=== PATIENT | male | born 1990 | race Two or more races ===

== ENCOUNTER 2023-09-18 13:03 | Emergency (ER) | payer MEDICAID, OTHER ==
[2023-09-19] MEDS ORDERED: KEP500T PO (01:54)
== END 2023-09-18 14:06 | disposition left against medical advice (07) ==
LOC: ER 13:03
DX: R56.9 Unspecified convulsions (principal); Z53.21 Procedure and treatment not carried out due to patient leaving prior to being seen by health care provider

== ENCOUNTER 2023-09-18 21:28 | Emergency (ER) | payer MEDICAID ==
[~2023-09-18] VITALS: Ht 165.1 cm; Wt 60.0 kg
[2023-09-18] MEDS: LORazepam 2MG/ML-1ML VIAL IM ONE (21:43)
[2023-09-18] MEDS: LORazepam 2MG/ML-1ML VIAL ONE (21:43)
[2023-09-18 22:20] VITALS: PULSE 129; RESP 26; TEMP 98.7; O2SAT 99
[2023-09-18] MEDS: levETIRAcetam 1000 mg/100ml 100 ML IV ONE (22:39)
[2023-09-18] MEDS: SODIUM CHLORIDE 0.9% 1,000 ML IV ONE (22:39)
[2023-09-18 22:48] LABS: Basophils # (auto) 0.1 10 ^3/uL (0-0.2); Basophils % (auto) 0.9 % (0.0-2.0); Eosinophils # (auto) 0 10 ^3/uL (0-0.8); Hematocrit 43.7 % (41.0-53.0); Hemoglobin 13.5 g/dL (13.5-17.5); Lymphocytes # (auto) 0.7 10 ^3/uL (0.4-5.4); Lymphocytes % (auto) 13.9 % (10.0-50.0); Mean Corpuscular Hemoglobin 21.4 pg (28.0-32.0); Mean Corpuscular Hgb Conc. 30.8 g/dL (32.0-36.0); Mean Corpuscular Volume 69.5 fL (80.0-100.0); Monocytes # (auto) 0.2 10 ^3/uL (0-1.3); Monocytes % (auto) 3.5 % (0.0-12.0); Neutrophils # (auto) 4.4 10 ^3/uL (1.6-8.6); Neutrophils % (auto) 81.7 % (37.0-80.0); Nucleated Red Blood Cells % 0.1 %; Red Blood Cells 6.29 10^6/uL (4.5-5.90); White Blood Cell 5.4 10^3/uL (4.4-10.8)
[2023-09-18 22:49] LABS: Chloride 101 mmol/L (98-107); Potassium 3.4 mmol/L (3.5-5.1); Sodium 138 mmol/L (136-145)
[2023-09-18 22:50] LABS: Anion Gap 16 (5-15); Carbon Dioxide 21 mmol/L (20-30)
[2023-09-18 22:51] LABS: Calcium 9.3 mg/dL (8.5-10.1)
[2023-09-18 22:52] LABS: Red Cell Distribution Width 21.5 % (11.8-14.3)
[2023-09-18 22:55] LABS: Glucose 124 mg/dL (74-106)
[2023-09-18 23:08] LABS: Urine Bacteria None Seen /hpf (None Seen)
[2023-09-18 23:11] LABS: Anisocytosis Slight; Hypochromia Moderate; Platelet Estimate Adequate
[2023-09-18 23:12] LABS: BUN/Creatinine Ratio 7.2 (10.0-20.0); Blood Urea Nitrogen < 5 mg/dL (9-23)
[2023-09-18 23:13] LABS: Blood Alcohol 408.6 mg/dL (<10)
[2023-09-18] MEDS: ONDANSETRON HCL 4 MG/2 ML VIAL IV ONE (23:25)
[2023-09-18 23:26] LABS: Amphetamine Screen, Urine Neg (NEGATIVE); Barbiturate Scree,Urine Neg (NEGATIVE); Benzodiazephine Screen, Urine Neg (NEGATIVE); Cannabinoid Screen, Urine Neg (NEGATIVE); Cocaine Screen, Urine Neg (NEGATIVE); Opiate Scree,Urine Neg (NEGATIVE); Phencyclidine Screen, Urine Neg (NEGATIVE)
[2023-09-18] MEDS: diphenhdrAMINE HCL 50 MG/1 ML VL IV ONE (23:26)
[2023-09-18 23:52] LABS: Urine Blood 2+ /uL (Negative); Urine Clarity Clear (Clear); Urine Color Light-Yellow (Yellow); Urine Protein, UAD 2+ (Negative); Urine Specific Gravity 1.013 (1.001-1.035); Urine Urobilinogen Normal (Negative); Urine WBC 1 /hpf (0 - 3)
[2023-09-19] MEDS: SODIUM CHLORIDE 0.9% 1,000 ML IV ONE (01:02)
[2023-09-19] MEDS ORDERED: KEP500T PO (01:54)
[2023-09-19 02:00] VITALS: BP 134/88; PULSE 129; RESP 14; O2SAT 94
[2023-09-19] MEDS: FOLIC ACID 1 MG, MAGNESIUM SULF SDV 50% 8 MEQ, MULTIPLE VITAMIN 10 ML, THIAMINE INJ 100... INJ ONE (02:09)
== END 2023-09-19 02:40 | disposition home or self-care (01) ==
LOC: ER 21:28
DX: G40.909 Epilepsy, unspecified, not intractable, without status epilepticus (principal); F10.129 Alcohol abuse with intoxication, unspecified; Y90.8 Blood alcohol level of 240 mg/100 ml or more
CPT/HCPCS: 36415; 80048; 80307; 80320; 81001; 82962; 84484; 85025; 96361; 96365; 96372; 96375; 99285; J1200; J1953; J2060; J2405; J3411; J3475; J7030